=== PATIENT | male | born 1940 | race Caucasian/White ===

== ENCOUNTER → 2016-09-20 | Outpatient (CLI) | payer MEDICARE ==
[~2016-09-20] MED LIST: ACID CONTROL150 MG PO; ASPIR 8181 MG PO; IMDUR ER TAB 3030 MG PO; LIPITOR TAB 2020 MG PO; LISINOPRIL10 MG PO; PANTOPRAZOLE SO40 MG PO
== END ==
LOC: HEART 5 07:40
DX: I49.3 Ventricular premature depolarization (principal); I45.9 Conduction disorder, unspecified; R00.1 Bradycardia, unspecified; R06.02 Shortness of breath
CPT/HCPCS: 78452; A9502

== ENCOUNTER → 2016-10-05 | Outpatient (CLI) | payer MEDICARE ==
[2016-10-05 08:47] LABS: HEMOGLOBIN 14.2 gm/dl (14.0-17.5); RED BLOOD COUNT 5.2 M/UL (4.20-5.50); WHITE BLOOD COUNT 9.3 K/UL (4.5-11.0)
[2016-10-05 08:58] LABS: BUN/CREATININE RATIO 13 (0-10)
== END ==
LOC: LAB 08:04
PROVIDERS: Internal Medicine Cardiovascular Disease
DX: Z01.818 Encounter for other preprocedural examination (principal)
CPT/HCPCS: 36415; 71020; 80048; 85025; 93005

== ENCOUNTER → 2016-10-07 | Outpatient (CLI) | payer MEDICARE | END | disposition home or self-care (01) | LOC: CATH 07:13 | DX: I25.118 Atherosclerotic heart disease of native coronary artery with other forms of angina pectoris (principal); R94.39 Abnormal result of other cardiovascular function study; I10 Essential (primary) hypertension; I49.3 Ventricular premature depolarization; I49.5 Sick sinus syndrome; I45.10 Unspecified right bundle-branch block; F17.210 Nicotine dependence, cigarettes, uncomplicated; R06.02 Shortness of breath; E78.5 Hyperlipidemia, unspecified; K21.9 Gastro-esophageal reflux disease without esophagitis; Z88.8 Allergy status to other drugs, medicaments and biological substances; Z79.82 Long term (current) use of aspirin; Z79.899 Other long term (current) drug therapy; F10.10 Alcohol abuse, uncomplicated; J30.9 Allergic rhinitis, unspecified; M19.90 Unspecified osteoarthritis, unspecified site; F15.90 Other stimulant use, unspecified, uncomplicated; E78.00 Pure hypercholesterolemia, unspecified | CPT/HCPCS: C1769; C1894; J1644; J2250; J7030; Q0163; Q9963 ==

== ENCOUNTER → 2016-11-24 | Outpatient (CLI) | payer MEDICARE | LOC: HEART 5 10:18 | DX: I49.3 Ventricular premature depolarization (principal); I49.5 Sick sinus syndrome ==